=== PATIENT | male | born 1950 | race Caucasian/White ===

== ENCOUNTER 2020-06-25 06:37 | Day surgery (SDC) | payer MEDICARE, OTHER ==
[~2020-06-25] VITALS: Ht 175.3 cm; Wt 80.0 kg
[2020-06-25] MEDS ORDERED: PROMETHAZINE 25 MG/ML, 1ML IVPush PRN (07:30)
[2020-06-25] MEDS ORDERED: METOPROLOL 1 MG/ML, 5ML IV PRN (07:30)
[2020-06-25] MEDS ORDERED: METOCLOPRAMIDE 5 MG/ML, 2ML IVPush PRN (07:30)
[2020-06-25] MEDS ORDERED: FENTANYL PF 100 MCG/2ML ONE (07:30)
[2020-06-25] MEDS ORDERED: EPHEDRINE 50 MG/ML, 1ML IVPush PRN (07:30)
[2020-06-25] MEDS ORDERED: ONDANSETRON 2MG/ML, 2ML IVPush PRN (07:30)
[2020-06-25] MEDS ORDERED: hydrALAzine 20 MG/ML, 1ML IV PRN (07:30)
[2020-06-25] MEDS ORDERED: ACETAMINOPHEN 325 MG TABLET PO PRN (07:30)
[2020-06-25] MEDS ORDERED: LABETALOL 5MG/ML, 20ML IV PRN (07:30)
[2020-06-25] MEDS ORDERED: HALOPERIDOL 5 MG/ML IV PRN (07:30)
[2020-06-25] MEDS ORDERED: FENTANYL PF 100 MCG/2ML IV PRN (07:30)
[2020-06-25] MEDS ORDERED: OXYcodone 5 MG/5 ML ORAL.SOL UDC PO PRN (07:30)
[2020-06-25] MEDS ORDERED: DIPHENHYDRAMINE 50 MG/ML, 1ML IVPush PRN (07:30)
[2020-06-25] MEDS ORDERED: CHLORHEXIDINE 15 ML UDC ONE (07:47)
[2020-06-25] MEDS ORDERED: PLEASE ENTER ALLERGIES MC SCH (08:00)
[2020-06-25] MEDS ORDERED: LACTATED RINGERS 1,000 ML IV SCH (08:00)
[2020-06-25] MEDS ORDERED: CHLORHEXIDINE 15 ML UDC PO ONE (08:00)
[2020-06-25 08:05] VITALS: BP 146/88
[2020-06-25] MEDS ORDERED: IRON PO (08:16)
[2020-06-25] MEDS ORDERED: VIT D3 PO (08:16)
[2020-06-25] MEDS ORDERED: B12 PO (08:16)
[2020-06-25] MEDS ORDERED: NIFE20CA PO (08:16)
[2020-06-25] MEDS ORDERED: MULTI VIT PO (08:16)
[2020-06-25] MEDS ORDERED: ASPI81TA45 PO (08:16)
== END 2020-06-25 10:00 | disposition home or self-care (01) ==
LOC: OUT 06:37
PROVIDERS: ATTEND Internal Medicine
DX: C15.9 Malignant neoplasm of esophagus, unspecified (principal); I10 Essential (primary) hypertension; K44.9 Diaphragmatic hernia without obstruction or gangrene; Z20.822 Contact with and (suspected) exposure to COVID-19; Z72.89 Other problems related to lifestyle; Z98.890 Other specified postprocedural states; Z79.899 Other long term (current) drug therapy; Z79.82 Long term (current) use of aspirin; Z87.891 Personal history of nicotine dependence
CPT/HCPCS: 43259; 93005; J3010; U0003